=== PATIENT | female | born 1970 | race Caucasian/White ===

== ENCOUNTER 2017-08-18 00:07 | Emergency (ER) | payer SELFPAY ==
[~2017-08-18] VITALS: Ht 165.1 cm; Wt 77.8 kg
[~2017-08-18 00:07] MED LIST: CLAR500T PO; [UNRECOGNIZED DRUG - CODE] PO
[2017-08-18 00:10] VITALS: Ht 165.1 cm; Wt 77.8 kg
== END 2017-08-18 00:44 | disposition left against medical advice (07) ==
LOC: E/R 00:07
DX: Z53.21 Procedure and treatment not carried out due to patient leaving prior to being seen by health care provider (principal)